=== PATIENT | male | born 1955 | race Hispanic/Latino ===

== ENCOUNTER 2018-09-12 05:23 | Inpatient (IN) | payer BC ==
[2018-09-12] MEDS ORDERED: ZOFRAN IV ONE (05:26)
[2018-09-12] MEDS ORDERED: HEPARIN 10,000 UNITS/10 ML IV ONE (05:26)
[2018-09-12] MEDS ORDERED: NACL 0.9% 1000 ML 1,000 ML IV ONE (05:26)
--- NOTE | 2018-09-12 05:32 | Emergency Department Report ---
ED Chest Pain HPI - General Chief Complaint: Chest Pain Stated Complaint: STEMI Time Seen by Provider: 09/12/18 05:26 Source: patient, EMS Mode of arrival: Stretcher Limitations: No Limitations - History of Present Illness Initial Comments: Mr. Persaud is a 62 yo male without significant past medical history who presents with severe chest pressure heaviness since 11 PM. He went to bed after the pain spontaneously improved. THe pain returned. He then called 911. Received mild relief with nitroglycerin. Did received 324 mg ASA prior to arrival. MD Complaint: chest pain -: Gradual, Sudden, This morning, This evening Onset: during rest Pain Location: substernal Pain Radiation: none Severity: severe Severity scale (0 -10): 10 Quality: heaviness, pressure Consistency: constant Improves With: nitroglycerin Worsens With: nothing re: dyspnea Heart Score - HEART Score History: Highly suspicious EKG: Significant ST-depression Age: 45-65 Risk factors: 1-2 risk factors Troponin: 1-3x normal limit HEART Score: 7 ED Review of Systems ROS: Stated complaint: STEMI Other details as noted in HPI Comment: All other systems reviewed and negative Constitutional: malaise Respiratory: shortness of breath Cardiovascular: chest pain ED Past Medical Hx - Past Medical History Previous Medical History?: No - Surgical History Past Surgical History?: Yes Additional Surgical History: Right kidney at age 10. - Family History Family history: CAD/[place] (father) - Social History Smoking Status: Never Smoker Substance Use Type: None ED Physical Exam - General Limitations: No Limitations General appearance: alert, in distress (eyes closed in pain, gives hx, grayish pale skin discoloration) - Head Head exam: Present: atraumatic, normocephalic - Eye Eye exam: Present: normal appearance. Absent: scleral icterus, conjunctival injection - ENT ENT exam: Present: mucous membranes moist - Neck Neck exam: Present: normal inspection, full ROM - Respiratory Respiratory exam: Present: normal lung sounds bilaterally. Absent: respiratory distress, wheezes, rales, rhonchi - Cardiovascular Cardiovascular Exam: Present: regular rate, normal rhythm, normal heart sounds, other (equal radial 2+ pulses). Absent: systolic murmur, diastolic murmur, rubs, gallop - GI/Abdominal GI/Abdominal exam: Present: soft, normal bowel sounds. Absent: distended, tenderness, guarding, rebound - Rectal Rectal exam: Present: deferred - Extremities Exam Extremities exam: Present: normal inspection - Back Exam Back exam: Present: normal inspection - Neurological Exam Neurological exam: Present: alert, oriented X3 - Psychiatric Psychiatric exam: Present: normal affect, normal mood - Skin Skin exam: Present: warm, dry, intact, normal color. Absent: rash ED Medical Decision Making - EKG Data 09/12/18 05:35 EKG obtained 0525 Normal sinus rhythm rate 90 beats a minute axis normal intervals +ST elevation in the inferior leads 3 and aVF with reciprocal depression most notable in V2 and ST depression in lateral leads - Medical Decision Making Prior to Mr. Persaud arrival I reviewed EKG transmission, concern for inferior ST elevation [place]. I discussed case with Dr. Constantino who reviewed EKG. He also agreed with clinical impression. inferior ST elevation. CODE STEMI Code STEMI was activated prior to arrival patient. Upon arrival, I reviewed second cardiac dressing which showed revolving inferior acute NJ. EKG obtained here in the ED also had findings of inferior ST elevation NJ. He received aspirin nitroglycerin per EMS. He received heparin bolus with heparin infusion. He also received nitroglycerin infusion here in ED. Transfer to the Picture Copyist in faire condition. Critical care attestation.: If time is entered above; I have spent that time in minutes in the direct care of this critically ill patient, excluding procedure time. ED Disposition Clinical Impression: ST elevation myocardial infarction (STEMI) of inferior wall, initial episode of care Disposition: OP ADMIT IP TO THIS HOSP Is pt being admited?: Yes Does the pt Need Aspirin: No Condition: Stable
[2018-09-12] MEDS ORDERED: TRIDIL DRIP 50MG/250ML 50 MG/250 ML BOTTLE ONE (05:34)
[2018-09-12] MEDS: HEPARIN/ 0.45% NACL-25,000 UNIT/500 ML 25,000 UNIT/500 ML BAG IV SCH ×2 (05:40→07:17)
[2018-09-12 05:46] LABS: Basophils # (Auto) 0.1 K/mm3 (0.0-0.1); Eosinophils # (Auto) 0.2 K/mm3 (0.0-0.4); Eosinophils % (Auto) 3.5 % (0.0-4.3); Lymphocytes # (Auto) 2.9 K/mm3 (1.2-5.4); Lymphocytes % (Auto) 49.6 % (13.4-35.0); Mean Corpuscular HGB Conc 36 % (32-34); Mean Corpuscular Volume 90 fl (84-94); Monocytes # (Auto) 0.6 K/mm3 (0.0-0.8); Monocytes % (Auto) 9.5 % (0.0-7.3); Platelet Count 190 K/mm3 (140-440); Red Blood Count 5.07 M/mm3 (3.65-5.03)
[2018-09-12 05:51] LABS: Hematocrit 45.6 % (35.5-45.6); Hemoglobin 16.3 gm/dl (11.8-15.2)
[2018-09-12 05:56] LABS: INR 0.93 (0.87-1.13)
[2018-09-12 05:57] LABS: Partial Thromboplastin Time 26.3 Sec. (24.2-36.6)
[2018-09-12] MEDS ORDERED: HEPARIN/NS 5000 UNIT/500ML(CATH LAB) 1,000 ML IR ONE (05:59)
[2018-09-12] MEDS ORDERED: CALAN ONE (05:59)
[2018-09-12] MEDS ORDERED: XYLOCAINE 2% INFILTRATI ONE (06:00)
[2018-09-12] MEDS ORDERED: NITROGLYCERIN SYRINGE 0 ML ONE (06:00)
[2018-09-12] MEDS ORDERED: TRIDIL DRIP 50MG/250ML 50 MG/250 ML BOTTLE IV SCH (06:00)
[2018-09-12] MEDS: SUBLIMAZE ONE ×2 (06:02→06:10)
[2018-09-12] MEDS ORDERED: NACL 0.9% 1000 ML 1,000 ML ONE (06:03)
[2018-09-12] MEDS: VERSED ONE ×2 (06:07→06:10)
[2018-09-12 06:11] LABS: Creatine Kinase MB 3.2 ng/mL (0.0-4.0)
[2018-09-12 06:12] LABS: Albumin 4.1 g/dL (3.9-5); BUN/Creatinine Ratio 10; Blood Urea Nitrogen 10 mg/dL (9-20); Calcium 9.2 mg/dL (8.4-10.2); Hemolysis Index 120
--- NOTE | 2018-09-12 06:13 | XRay Report ---
PROCEDURE: XR CHEST 1V AP TECHNIQUE: Chest radiograph single view. HISTORY: chest pain COMPARISONS: None . FINDINGS: Heart: Normal. Mediastinum/Vessels: Normal. Lungs/Pleural space: Normal. Bony thorax: No acute osseous abnormality. Life support devices: None. IMPRESSION: No acute cardiopulmonary abnormality. This document is electronically signed by Roberto Crook MD., Sep 12 2018 06:11:40 AM ET
[2018-09-12] MEDS: HEPARIN 10,000 UNITS/10 ML ONE ×2 (06:14→06:19)
[2018-09-12] MEDS ORDERED: ZOFRAN ONE (06:14)
[2018-09-12 06:16] LABS: Alanine Aminotransferase 25 units/L (7-56)
[2018-09-12] MEDS ORDERED: DILAUDID ONE (06:31)
[2018-09-12] MEDS ORDERED: HEPARIN/NS 5000 UNIT/500ML(CATH LAB) 500 ML IR ONE (06:33)
[2018-09-12] MEDS ORDERED: PLAVIX ONE (06:59)
[2018-09-12] MEDS ORDERED: ALUM-MAG HYDROX-SIMETH 200-200-20MG/5ML ONE (06:59)
[2018-09-12] MEDS ORDERED: TYLENOL PO PRN (07:12)
[2018-09-12] MEDS ORDERED: ULTRAM PO PRN (07:12)
[2018-09-12] MEDS ORDERED: DILAUDID IV PRN (07:12)
[2018-09-12] MEDS ORDERED: ZOFRAN IV PRN (07:12)
[2018-09-12] MEDS ORDERED: SENOKOT PO PRN (07:12)
[2018-09-12] MEDS ORDERED: AMBIEN PO PRN (07:12)
--- NOTE | 2018-09-12 08:08 | Consultation ---
CARDIOLOGY CONSULTATION HISTORY OF PRESENT ILLNESS: The patient is a 62-year-old white gentleman, who was having chest pain of 4-5 hours duration on the night of admission. The pain is not getting any better and getting worse, hence paramedics were called and EKG showed sinus rhythm with mild ST elevations in the inferior leads along with reciprocal ST depressions across the precordial leads suggestive of acute inferior injury. Hence, the patient was brought to the Emergency Room and a STEMI protocol was followed and the patient was taken to the catheterization laboratory on an emergency basis. PAST MEDICAL HISTORY: Essentially unremarkable, on no medication. No history of hypertension or diabetes or pulmonary problems. SOCIAL HISTORY: Does not smoke. Drinks beer little and no history of drug use. Lives by himself. MEDICATIONS AT HOME: None. ALLERGIES: None. REVIEW OF SYSTEMS: The patient says he was getting short of breath for the last few days when he was mowing the lawn. Otherwise, no chest pains prior to this, no previous cardiac history. No history of hypertension or diabetes or pulmonary problems. No history of strokes or seizures. No history of asthma or emphysema. No significant surgical history. No leg pains or swelling. No orthopnea or PND. No unusual headaches. No hematuria. No change in the bowel habits and no urinary symptoms. No history of any GI bleed. PHYSICAL EXAMINATION: GENERAL: The patient is complaining of chest pain at the time of presentation to the catheterization laboratory in addition to back pain. Blood pressure is 140/90. Telemetry is showing sinus rhythm. HEENT: Unremarkable. Conjunctivae pink. Sclerae anicteric. NECK: Supple, no JVD. HEART: Regular, probably S4, no S3, no significant murmurs. LUNGS: Clear. ABDOMEN: Soft, nontender. EXTREMITIES: Without edema. NEUROLOGIC: Alert, oriented x 3. FINAL IMPRESSION: Chest pain of few to many hours duration with EKG changes suggestive of acute inferior injury, STEMI protocol was followed and taken to the cardiac catheterization laboratory on an emergency basis, which showed occluded proximal RCA, which was then intervened and drug eluting stent was inserted with improvement in his symptoms and EKG changes. The patient does have significant left coronary system. This will be further assessed and consideration for intervention versus bypass will be considered. The patient is hemodynamically stable at the end of the procedure without any chest pain. Rhythm is being stable. The patient is admitted to ICU. Findings were explained to the patient and his brother. They understand. I explained the importance of medical therapy and staying in the hospital. JOB# [id number] ISAURA/GERALDINE BARAJAS
--- NOTE | 2018-09-12 08:19 | Cardiac Catherization Report ---
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 No previous medical history and the patient does not follow with any doctor. DESCRIPTION OF PROCEDURE: The patient was taken to the catheterization laboratory on an emergency basis. The patient was prepared in standard fashion. The patient was sedated with IV Versed and fentanyl with complaints of chest pain and back pain. The right wrist area and forearm thoroughly cleansed with chlorhexidine solution, sterile drapes were applied. Local anesthesia was given. Right radial artery puncture was made using 21-gauge arterial puncture needle. Subsequently, 5-Nigerian slender sheath was introduced. The patient received 4000 units of heparin in the Emergency Room and received 3000 units of heparin during his radial access. The patient was given extra dose of 3000 units of heparin. Subsequently, the right coronary guiding catheter 6-Nigerian was advanced and engaged the right coronary artery, which showed occlusion of the proximal RCA. A 0.014-inch [place] XT guidewire was introduced and advanced into the distal RCA without much difficulty. This opened the vessel. There was significant stenosis. Lesion was dilated with a 2.5 x 15 mm balloon to 14 atmospheres. This JC 0 flow was converted to JC 3 flow. Subsequently, intravascular ultrasound was set up and performed of the RCA. This showed diffuse, extensive disease throughout the proximal, mid, and distal RCA. The vessel size was found to be approximately 3 mm in diameter. Also, evidence of some thrombus noted. Subsequently, 2.75 x 30 mm R-[place] drug-eluting stent was placed under fluoroscopy and angiography and expanded to 16 atmospheres with very good result. A repeat IVUS was attempted even with a flynn wire and difficult to cross the stent. Because of difficulty, no second pass of the IVUS was performed. Once JC 3 flow was obtained, the patient has reperfusion arrhythmia namely frequent ventricular bigeminy, otherwise hemodynamically stable. Chest pain improved and EKG improved. After completion of intervention of the RCA, right coronary guiding catheter was taken out and a 5-[place]igerian multipurpose catheter was used to obtain the angiograms of the left coronary artery and also left ventriculogram was performed in ANDRE and SINHALA projection using hand injection. At the end of the procedure, catheter and sheath were removed and good hemostasis was achieved with radial band. ACT was found to be 247 at the end of the procedure. The patient received 600 mg of Plavix at the end of the procedure in the catheterization laboratory. Following findings were noted. Patient was evaluated for moderate sedation,was given Versed,Fentanyl and dilaudid,was monitored continuously with pulse oximetry,EKG and hemodynamic monitoring,patient tolerated sedation well.At end of procedure,patient is alert,oriented x 3,breathing normally and moving all extremeties.Sedation started at 06:08 AM and ended at 06:51 AM. HEMODYNAMICS: 1. Opening aortic pressure 120/78, left ventricular pressure 120/32. No gradient across the aortic valve. Estimated ejection fraction 45% to 50%. 2. Left ventriculogram done in ANDRE projection showed [id number] hypokinesis of the inferior wall. Rest of the ventricle moving well. However, this is only hand injection. An echocardiogram will be obtained for further evaluation. 3. Right coronary artery, as mentioned above, is occluded in the proximal part. After passing the guidewire as mentioned above, significant lesion was noted, which was confirmed by intravascular ultrasound and 2.75 x 30 mm ROnyx stent was inserted, inflated to 16 atmospheres with good result. At the end of the coronary intervention, mild proximal disease was noted proximal to the stent and distally, there is no significant disease noted in the RCA angiographically. However, it is to be noted that by intravascular ultrasound, the patient has diffuse moderate disease. Left coronary system shows calcifications in the LAD, left main area. Distal LM shows 30% to 40% smooth lesion. LAD, which curves around the apex, is a small caliber vessel. It shows significant 70% to 80% proximal lesion at the origin of small-sized proximal diagonal branch. Ostium of this diagonal branch has severe lesion. JC 3 flow was noted in the LAD. Ramus branch, which is a medium sized vessel, has long 90% segmental disease starting at the ostium and the proximal part. Distally without any significant disease, medium-sized vessel. Circumflex artery shows smooth 40% proximal long segmental lesion along with severe 80% to 90% distal disease before the origin of a medium-sized distal obtuse marginal branch. Collaterals none. FINAL IMPRESSION: 1. [id number] hypokinesis of the inferior wall. Ejection fraction 45% to 50%. 2. Occluded RCA, which is the culprit lesion for acute inferior wall ST-elevation myocardial infarction with successful intervention by placement of a drug-eluting stent. JC flow was 0 prior to the procedure and JC flow was 3 at the end of the procedure. No complications were noted of dissection or perforation or embolization. Left coronary artery shows moderate distal left main disease, significant proximal LAD disease at the ostium of the small-sized diagonal branch. LAD itself is a small caliber vessel. Similarly medium-sized ramus branch has severe ostial lesion and also moderate proximal circumflex lesion in addition to severe distal disease in the circumflex noted. Considering the above anatomy, further revascularization of the left coronary system will be considered, surgical opinion will be obtained. However, JC 3 flow was noted in all the vessels in the left coronary system. Considering the patient is hemodynamically stable, pain-free, the patient will be continued on aggressive medication and a surgical opinion will be obtained regarding the revascularization of the left coronary artery. The patient was started on aspirin in addition to Plavix. The patient received 600 mg of Plavix in the catheterization laboratory. The patient was transferred to the room in stable condition. [facility]# [id number] ISAURA/GERALDINE BARAJAS
[2018-09-12] MEDS: ECOTRIN PO SCH (09:43)
[2018-09-12] MEDS: ZESTRIL PO SCH (09:43)
[2018-09-12] MEDS: LOPRESSOR PO SCH ×2 (09:44→22:00)
[2018-09-12] MEDS: NACL 0.9% 1000 ML 1,000 ML IV SCH ×2 (09:44→22:57)
[2018-09-12 10:28] LABS: Creatine Kinase MB 174.8 ng/mL (0.0-4.0)
[2018-09-12 11:02] LABS: Chol/HDL Ratio 4.61 %
[2018-09-12 11:56] LABS: Creatine Kinase MB 207.3 ng/mL (0.0-4.0)
--- NOTE | 2018-09-12 17:03 | Consultation ---
History of Present Illness Consult date: 09/12/18 Requesting physician: MICKEY QUILES Reason for consult: other (STEMI) History of present illness: PULMONARY/CCM CONSULT NOTE (Full dictation # [id number]) Please see dictated notes for full details Medications and Allergies Allergies Allergy/AdvReac Type Severity Reaction Status Date / Time No Known Allergies Allergy Unverified 09/12/18 05:40 Active Meds: Active Medications Acetaminophen (Tylenol) 650 mg PO Q4H PRN PRN Reason: Pain MILD(1-3)/Fever >100.5/DOMINGUEZ Aspirin (Ecotrin) 325 mg PO QDAY GERALD Last Admin: 09/12/18 09:43 Dose: 325 mg Documented by: Atorvastatin Calcium (Lipitor) 80 mg PO QHS GERALD Clopidogrel Bisulfate (Plavix) 75 mg PO QDAY GERALD Hydromorphone HCl (Dilaudid) 0.5 mg IV Q3H PRN PRN Reason: Pain , Severe (7-10) Sodium Chloride (Nacl 0.9% 1000 Ml) 1,000 mls @ 42 mls/hr IV ONCE ONE Stop: 09/13/18 05:14 Last Admin: 09/12/18 06:10 Dose: 100 mls Documented by: Nitroglycerin/Dextrose (Tridil Drip 50mg/250ml) 50 mg in 250 mls @ 3 mls/hr IV TITR GERALD; Protocol Last Titration: 09/12/18 05:46 Dose: 20 mcg/min, 6 mls/hr Documented by: Heparin Sodium/Sodium Chloride (Heparin/ 0.45% Nacl-25,000 Unit/500 Ml) 25,000 unit in 500 mls @ 20 mls/hr IV TITRATE GERALD; Protocol Last Titration: 09/12/18 15:40 Dose: 0 units/hr, 0 mls/hr Documented by: Sodium Chloride (Nacl 0.9% 1000 Ml) 1,000 mls @ 100 mls/hr IV DIRECT GERALD Last Admin: 09/12/18 09:44 Dose: 100 mls/hr Documented by: Lisinopril (Zestril) 2.5 mg PO QDAY GERALD Last Admin: 09/12/18 09:43 Dose: 2.5 mg Documented by: Metoprolol Tartrate (Lopressor) 50 mg PO BID GERALD Last Admin: 09/12/18 09:44 Dose: 50 mg Documented by: Ondansetron HCl (Zofran) 4 mg IV Q8H PRN PRN Reason: N/V unrelieved by Reglan Last Admin: 09/12/18 15:49 Dose: 4 mg Documented by: Anthony (Senokot) 8.6 mg PO Q12H PRN PRN Reason: Laxative Effect Tramadol HCl (Ultram) 50 mg PO Q4H PRN PRN Reason: Pain, Mild (1-3) Last Admin: 09/12/18 15:47 Dose: 50 mg Documented by: Zolpidem Tartrate (Ambien) 5 mg PO QHS PRN PRN Reason: Sleep Physical Examination Vital signs: Vital Signs Pulse Ox 80 L 09/12/18 05:16 Results - Laboratory Findings CBC and BMP: 09/12/18 05:34 09/12/18 05:34 PT/INR, D-dimer PT 13.0 Sec. (12.2-14.9) 09/12/18 05:34 INR 0.93 (0.87-1.13) 09/12/18 05:34 Abnormal lab findings: Abnormal Labs 09/12/18 09/12/18 09/12/18 05:34 05:34 09:40 RBC 5.07 H Hgb 16.3 H MCHC 36 H Lymph % (Auto) 49.6 H [place] % (Auto) 9.5 H Seg Neutrophils % 36.4 L Heparin Anti-Xa Level Carbon Dioxide 21 L Glucose 141 H Total Creatine Kinase 1454 H CK-MB (CK-2) 174.8 H CK-MB (CK-2) Rel Index 4.6 H 12.0 H Troponin T 3.240 H* D LDL Cholesterol Direct 133 H HDL Cholesterol 36 L 09/12/18 09/12/18 11:05 13:18 RBC Hgb MCHC Lymph % (Auto) [place] % (Auto) Seg Neutrophils % Heparin Anti-Xa Level 1.35 H Carbon Dioxide Glucose Total Creatine Kinase 1660 H CK-MB (CK-2) 207.3 H CK-MB (CK-2) Rel Index 12.4 H Troponin T 2.200 H* D LDL Cholesterol Direct HDL Cholesterol
[2018-09-12] MEDS: PEPCID PO SCH (20:18)
--- NOTE | 2018-09-12 23:29 | History and Physical Report ---
History of Present Illness Date of admission: 09/12/18 06:48 Chief complaint: Chest pain History of present illness: 62-year-old man with significant past medical history who presented to the hospital with acute severe 10 out of 10 chest pain. He was seen in the ER, he was treated with aspirin and nitroglycerin with no improvements. He was found to have STEMI and taken to the labeling machine operator. The patient was complaining of shortness of breath associated with chest pain., Pain 10 out of 10, substernal, nonradiating. Past medical history; denies any significant past medical problems Surgical history, right kidney surgery H 10 Family history CAD and [place] in his father Social history he denies smoking alcohol or illicit drug use Medications and Allergies Allergies Allergy/AdvReac Type Severity Reaction Status Date / Time No Known Allergies Allergy Unverified 09/12/18 05:40 Active Meds: Active Medications Acetaminophen (Tylenol) 650 mg PO Q4H PRN PRN Reason: Pain MILD(1-3)/Fever >100.5/DOMINGUEZ Aspirin (Ecotrin) 325 mg PO QDAY [facility] Last Admin: 09/12/18 09:43 Dose: 325 mg Documented by: Atorvastatin Calcium (Lipitor) 80 mg PO QHS [facility] Last Admin: 09/12/18 22:00 Dose: 80 mg Documented by: Clopidogrel Bisulfate (Plavix) 75 mg PO QDAY [facility] Famotidine (Pepcid) 20 mg PO QDAY [facility] Last Admin: 09/12/18 20:18 Dose: 20 mg Documented by: Hydromorphone HCl (Dilaudid) 0.5 mg IV Q3H PRN PRN Reason: Pain , Severe (7-10) Sodium Chloride (Nacl 0.9% 1000 Ml) 1,000 mls @ 42 mls/hr IV ONCE ONE Stop: 09/13/18 05:14 Last Admin: 09/12/18 06:10 Dose: 100 mls Documented by: Nitroglycerin/Dextrose (Tridil Drip 50mg/250ml) 50 mg in 250 mls @ 3 mls/hr IV TITR GERALD; Protocol Last Titration: 09/12/18 16:00 Dose: 0 mcg/min, 0 mls/hr Documented by: Heparin Sodium/Sodium Chloride (Heparin/ 0.45% Nacl-25,000 Unit/500 Ml) 25,000 unit in 500 mls @ 20 mls/hr IV TITRATE GERALD; Protocol Last Titration: 09/12/18 21:51 Dose: 800 units/hr, 16 mls/hr Documented by: Sodium Chloride (Nacl 0.9% 1000 Ml) 1,000 mls @ 100 mls/hr IV DIRECT GERALD Last Admin: 09/12/18 22:57 Dose: 100 mls/hr Documented by: Lisinopril (Zestril) 2.5 mg PO QDAY [facility] Last Admin: 09/12/18 09:43 Dose: 2.5 mg Documented by: Metoprolol Tartrate (Lopressor) 50 mg PO BID [facility] Last Admin: 09/12/18 22:00 Dose: 50 mg Documented by: Ondansetron HCl (Zofran) 4 mg IV Q8H PRN PRN Reason: N/V unrelieved by Manjinder Last Admin: 09/12/18 15:49 Dose: 4 mg Documented by: Senna (Senokot) 8.6 mg PO Q12H PRN PRN Reason: Laxative Effect Tramadol HCl (Ultram) 50 mg PO Q4H PRN PRN Reason: Pain, Mild (1-3) Last Admin: 09/12/18 15:47 Dose: 50 mg Documented by: Zolpidem Tartrate (Ambien) 5 mg PO QHS PRN PRN Reason: Sleep Review of Systems All systems: negative Constitutional: no weight loss Ears, nose, mouth and throat: no ear pain Cardiovascular: chest pain, no orthopnea Respiratory: no cough Gastrointestinal: no abdominal pain Genitourinary Male: no dysuria Musculoskeletal: no neck stiffness Integumentary: no rash Neurological: no head injury Psychiatric: no anxiety Endocrine: no cold intolerance Hematologic/Lymphatic: no easy bruising Allergic/Immunologic: no urticaria Exam - Constitutional Vitals: Temp Pulse Resp BP Pulse Ox 97.7 F 66 19 99/67 96 09/12/18 20:00 09/12/18 23:11 09/12/18 23:11 09/12/18 23:11 09/12/18 23:11 General appearance: Present: no acute distress, well-nourished - EENT Eyes: Present: PERRL ENT: hearing intact, clear oral mucosa - Neck Neck: Present: supple, normal ROM - Respiratory Respiratory effort: normal Respiratory: bilateral: CTA - Cardiovascular Heart Sounds: Present: S1 & S2. Absent: rub, click - Extremities Extremities: pulses symmetrical, No edema Peripheral Pulses: within normal limits - Abdominal General gastrointestinal: Present: soft, non-tender, non-distended, normal bowel sounds Male genitourinary: Present: normal - Integumentary Integumentary: Present: clear, warm, dry - Musculoskeletal Musculoskeletal: gait normal, strength equal bilaterally - Psychiatric Psychiatric: appropriate mood/affect, intact judgment & insight - Neurologic Neurologic: CNII-XII intact, moves all extremities Results - Labs CBC & Chem 7: 09/13/18 04:47 09/13/18 04:47 Labs: Laboratory Last Values WBC 5.9 K/mm3 (4.5-11.0) 09/12/18 05:34 RBC 5.07 M/mm3 (3.65-5.03) H 09/12/18 05:34 Hgb 16.3 gm/dl (11.8-15.2) H 09/12/18 05:34 Hct 45.6 % (35.5-45.6) 09/12/18 05:34 MCV 90 fl (84-94) 09/12/18 05:34 MCH 32 pg (28-32) 09/12/18 05:34 MCHC 36 % (32-34) H 09/12/18 05:34 RDW 14.0 % (13.2-15.2) 09/12/18 05:34 Plt Count 190 K/mm3 (140-440) 09/12/18 05:34 Lymph % (Auto) 49.6 % (13.4-35.0) H 09/12/18 05:34 Delta % (Auto) 9.5 % (0.0-7.3) H 09/12/18 05:34 Eos % (Auto) 3.5 % (0.0-4.3) 09/12/18 05:34 Baso % (Auto) 1.0 % (0.0-1.8) 09/12/18 05:34 Lymph # 2.9 K/mm3 (1.2-5.4) 09/12/18 05:34 Delta # 0.6 K/mm3 (0.0-0.8) 09/12/18 05:34 Eos # 0.2 K/mm3 (0.0-0.4) 09/12/18 05:34 Baso # 0.1 K/mm3 (0.0-0.1) 09/12/18 05:34 Seg Neutrophils % 36.4 % (40.0-70.0) L 09/12/18 05:34 Seg Neutrophils # 2.2 K/mm3 (1.8-7.7) 09/12/18 05:34 PT 13.0 Sec. (12.2-14.9) 09/12/18 05:34 INR 0.93 (0.87-1.13) 09/12/18 05:34 APTT 26.3 Sec. (24.2-36.6) 09/12/18 05:34 Heparin Anti-Xa Level 0.27 U.I./ml (0.3-0.7) L 09/12/18 20:54 Sodium 139 mmol/L (137-145) 09/12/18 05:34 Potassium 4.2 mmol/L (3.6-5.0) 09/12/18 05:34 Chloride 101.2 mmol/L (98-107) 09/12/18 05:34 Carbon Dioxide 21 mmol/L (22-30) L 09/12/18 05:34 21 mmol/L 09/12/18 05:34 BUN 10 mg/dL (9-20) 09/12/18 05:34 1.0 mg/dL (0.8-1.5) 09/12/18 05:34 Estimated GFR > 60 ml/min 09/12/18 05:34 10 % 09/12/18 05:34 Glucose 141 mg/dL (75-100) H 09/12/18 05:34 Calcium 9.2 mg/dL (8.4-10.2) 09/12/18 05:34 0.60 mg/dL (0.1-1.2) 09/12/18 05:34 AST 29 units/L (5-40) 09/12/18 05:34 ALT 25 units/L (7-56) 09/12/18 05:34 69 units/L (35-129) 09/12/18 05:34 1660 units/L (55-170) H 09/12/18 11:05 CK-MB (CK-2) 207.3 ng/mL (0.0-4.0) H 09/12/18 11:05 CK-MB (CK-2) Rel Index 12.4 (0-4) H 09/12/18 11:05 2.200 ng/mL (0.00-0.029) H* D 09/12/18 11:05 7.1 g/dL (6.3-8.2) 09/12/18 05:34 4.1 g/dL (3.9-5) 09/12/18 05:34 1.4 % 09/12/18 05:34 Triglycerides 75 mg/dL (2-149) 09/12/18 09:40 Cholesterol 166 mg/dL (50-199) 09/12/18 09:40 133 mg/dL (50-130) H 09/12/18 09:40 36 mg/dL (40-59) L 09/12/18 09:40 4.61 % 09/12/18 09:40 Blood Type O POSITIVE 09/12/18 05:34 Antibody Screen Negative 09/12/18 05:34 - Imaging and Cardiology Chest x-ray: image reviewed ( No acute cardiopulmonary abnormality. ) Assessment and Plan Assessment and plan: 62m who pw stemi sp cath and intervention to RCA cont med mgt, cont hep ggt and ntg ggt cont ICU care cct 33 minutes
--- NOTE | 2018-09-13 01:33 | Consultation ---
CONSULTING PHYSICIAN: Dr. Alivia Gentile. REASON FOR CONSULTATION: Critical care ST elevation myocardial infarction. CHIEF COMPLAINT AND HISTORY OF PRESENT ILLNESS: The patient is a 62-year-old male with past medical history really unremarkable. Denies history of heart disease. Denies history of hypertension. Denies any history of tobacco use or abuse. Denies any history of asthma and COPD. He states that really he was having chest pain over a couple of days. He was mowing his lawn at home and was not able to get the job done on the first day due to exertional dyspnea and chest pain, so he stopped. On the second day, he was able to do even less than he did the prior day and he went to sleep at night wondering if there was something going on. He woke up early that morning with the crushing chest pain and shortness of breath. According to him, he knew he had to get to the Emergency Room. I believe emergency medical services were called and he was brought into the Emergency Room. In the Emergency Room, he was evaluated, found to have essentially ST depressions across the precordial lead that will reciprocal to mild ST elevations in the inferior leads. He was taken to the dye lab technician and was found to have a right coronary artery, occluded proximal right RCA. PTCA was done, drug-eluting stent was placed. Postop, he was brought into the intensive care unit where I stopped by to see him. When I stopped by to see him, he was resting peacefully in bed. Chest pain was gone. He was feeling much better. He was on a heparin drip. Again, denies history of tobacco use, now or in the past. Denies any illicit drug use or abuse. This really is as much of the history of presentation as I have. PAST MEDICAL HISTORY: He is obese, otherwise no past medical history. PAST SURGICAL HISTORY: Denies. MEDICATIONS: He was on at the time I stopped by to see him were reviewed, pertinent medications include the following: Tylenol 650 mg p.o. q. 4 hours p.r.n. mild pain, aspirin 325 mg p.o. daily, Lipitor 80 mg p.o. at bedtime, Plavix 75 mg p.o. daily, heparin drip was going ACS protocol, started at 1000 units per hour, Dilaudid 0.5 mg IV q. 3 hours p.r.n. severe pain. Lisinopril 2.5 mg p.o. daily, metoprolol 50 mg p.o. b.i.d. He had been on a nitroglycerin drip at 10 mcg per minute, Zofran 4 mg IV q. 8 hours p.r.n. nausea and vomiting, tramadol 50 mg p.o. q. 4 hours p.r.n. mild pain, and Ambien 5 mg p.o. at bedtime p.r.n. insomnia. ALLERGIES: No known drug allergies. DIET: Well-built gentleman, slightly on the obese side. Denies acute weight loss or gain in the preceding few weeks to months. FAMILY AND SOCIAL HISTORY: Lives in the community. Denies alcohol, tobacco, or illicit drug use or abuse. Family history, otherwise, noncontributory. REVIEW OF SYSTEMS: No loss of consciousness. No new onset of seizures. No new onset focal weakness. No gross hematochezia or melena. No gross hematuria or dysuria. No hematemesis. No hemoptysis. He had the chest pain. Denies palpitations. Denies heat or cold intolerance. Denies polydipsia or polyuria. He admits to snoring, is not sure about witnessed apneas. Complete 13-system review of systems was obtained. Pertinent positives and/or negatives as in body of history above, otherwise, they are noncontributory. PHYSICAL EXAMINATION: VITAL SIGNS: At presentation, he was afebrile, temperature of 96.9 degrees Fahrenheit, pulse of 88, respiratory rate of 18, blood pressure was 169/101, O2 sats 100%, inspired oxygen concentration at that time was not recorded. When I stopped by to see him, O2 sats were about 98% on room air. GENERAL: He is a well-built, slightly obese male, normocephalic, atraumatic, talking to me in full sentences without overt respiratory distress. HEAD, EYES, EARS, NOSE AND THROAT: He is anicteric. No conjunctival erythema. Oropharynx is moist, is a Mallampati #3 oropharynx. No gross jugular venous distention, no thyromegaly. Grossly, no palpable lymph nodes in the supraclavicular or submandibular lymph node chains. LUNGS: Auscultation of both lung bucio unremarkable. Lungs are clear bilaterally. HEART: Heart sounds 1 and 2 are heard. They were regular in rate and rhythm at time of my evaluation without rubs or murmurs. ABDOMEN: Soft, full, bowel sounds are positive, nontender. No palpable hepatosplenomegaly. EXTREMITIES: Without overt digital clubbing, no cyanosis, no pedal edema. NEUROLOGIC: Pupils are equal, round, about 3 mm, reactive to light. Extraocular muscle movements are intact. He moves all 4 extremities spontaneously. No fasciculations. No rash. Pedal pulses are palpable and strong bilaterally. The skin is of normal turgor without overt cellulitis or rash. LABORATORY DATA: From my review are as follows: White cell count 5900, hemoglobin 16.3, hematocrit 45.6, platelet count of 193. INR within normal limits. Heparin anti-Xa level 1.35. Serum sodium 139, potassium 4.2, chloride 101, bicarbonate was 21, BUN 10, creatinine 1.0, glucose 141. Liver function test within normal limits. Troponin initial one was 0.10. His most recent is 2.20. LDL cholesterol was 133. A 3D echocardiogram was done and I am unable to pull the report. I will wait that report. A chest x-ray was also done and essentially it is a normal chest x-ray, slightly rotated to the right. No gross pneumothorax, no gross bony fractures, no acute process. ASSESSMENT AND PLAN: 1. Acute ST-elevation myocardial infarction. 2. Hypertension. 3. Chest pain, now resolved. 4. Hyperlipidemia. 5. Possible obstructive sleep apnea. PLAN: We will continue the ACS protocol. Continue the antiplatelet therapy at this point with the heparin. I will defer to Cardiology in terms of introducing other disease modifying medications. Beta blockade. I will await the 2D echo to see what his ejection fraction is and if there is any evidence of heart failure. I will start him on GI prophylaxis, especially with him on full anticoagulation. Again, he remains on full anticoagulation as well as Plavix and the aspirin. He actually is also on Lipitor. Continue tobacco abstinence has been counseled. Outpatient [facility] evaluation has been counseled. Flu and pneumonia vaccination will be addressed per protocol. Thank you very much for the consult. We will follow along. We will make further recommendations as picture progresses/becomes clearer. We will watch him in the intensive care unit overnight and hopefully, we can transfer to regular floor in the morning. JOB# [id number] MARISSA/GERALDINE BARAJAS
[2018-09-13 06:03] LABS: Basophils % (Auto) 0.8 % (0.0-1.8); Eosinophils # (Auto) 0.1 K/mm3 (0.0-0.4); Eosinophils % (Auto) 1.9 % (0.0-4.3); Hematocrit 38.2 % (35.5-45.6); Hemoglobin 13.4 gm/dl (11.8-15.2); Lymphocytes # (Auto) 1.7 K/mm3 (1.2-5.4); Lymphocytes % (Auto) 28.2 % (13.4-35.0); Mean Corpuscular HGB Conc 35 % (32-34); Mean Corpuscular Volume 90 fl (84-94); Monocytes # (Auto) 0.6 K/mm3 (0.0-0.8); Monocytes % (Auto) 10.4 % (0.0-7.3); Platelet Count 158 K/mm3 (140-440); Red Blood Count 4.24 M/mm3 (3.65-5.03)
[2018-09-13 06:17] LABS: Creatine Kinase MB 69.2 ng/mL (0.0-4.0)
[2018-09-13 06:19] LABS: BUN/Creatinine Ratio 11; Blood Urea Nitrogen 10 mg/dL (9-20); Calcium 7.7 mg/dL (8.4-10.2); Hemolysis Index 4
--- NOTE | 2018-09-13 07:59 | Progress Note ---
Assessment and Plan Assessment and plan: 62m who pw stemi sp cath and intervention to RCA cont med mgt, cont hep ggt and ntg ggt cont ICU care cct 33 minutes History Interval history: Review of systems Constitutional: No fevers, no malaise, no joint pains CVS: No chest pain, no orthopnea, no pedal edema GI: No abdominal pain, no diarrhea, no vomiting, no constipation Respiratory: No shortness of breath, no wheezing, no coughing Hospitalist Physical - Physical exam Narrative exam: General.: Appears well, no distress, nontoxic HEENT: Moist mucous membranes, extraocular muscles intact, no lymphadenopathy Neck: supple Cardiac: S1-S2 heard Lungs: clear to auscultation bilaterally Abdomen: soft , nontender, nondistended, bowel sounds positive Extremities: no edema clubbing or cyanosis Skin: no rash or lesions Neurologic: no gross focal deficits Psych: calm, and cooperative - Constitutional Vitals: Temp Pulse Resp BP Pulse Ox 98.0 F 63 20 113/67 97 09/13/18 04:00 09/13/18 07:11 09/13/18 07:11 09/13/18 07:11 09/13/18 07:11 Results - Labs CBC & Chem 7: 09/13/18 04:47 09/13/18 04:47 Labs: Laboratory Last Values WBC 6.1 K/mm3 (4.5-11.0) 09/13/18 04:47 RBC 4.24 M/mm3 (3.65-5.03) 09/13/18 04:47 Hgb 13.4 gm/dl (11.8-15.2) 09/13/18 04:47 Hct 38.2 % (35.5-45.6) D 09/13/18 04:47 MCV 90 fl (84-94) 09/13/18 04:47 MCH 32 pg (28-32) 09/13/18 04:47 MCHC 35 % (32-34) H 09/13/18 04:47 RDW 14.0 % (13.2-15.2) 09/13/18 04:47 Plt Count 158 K/mm3 (140-440) 09/13/18 04:47 Lymph % (Auto) 28.2 % (13.4-35.0) 09/13/18 04:47 [place] % (Auto) 10.4 % (0.0-7.3) H 09/13/18 04:47 Eos % (Auto) 1.9 % (0.0-4.3) 09/13/18 04:47 Baso % (Auto) 0.8 % (0.0-1.8) 09/13/18 04:47 Lymph # 1.7 K/mm3 (1.2-5.4) 09/13/18 04:47 [place] # 0.6 K/mm3 (0.0-0.8) 09/13/18 04:47 Eos # 0.1 K/mm3 (0.0-0.4) 09/13/18 04:47 Baso # 0.0 K/mm3 (0.0-0.1) 09/13/18 04:47 Seg Neutrophils % 58.7 % (40.0-70.0) 09/13/18 04:47 Seg Neutrophils # 3.6 K/mm3 (1.8-7.7) 09/13/18 04:47 PT 13.0 Sec. (12.2-14.9) 09/12/18 05:34 INR 0.93 (0.87-1.13) 09/12/18 05:34 APTT 26.3 Sec. (24.2-36.6) 09/12/18 05:34 Heparin Anti-Xa Level 0.27 U.I./ml (0.3-0.7) L 09/12/18 20:54 Sodium 138 mmol/L (137-145) 09/13/18 04:47 Potassium 4.0 mmol/L (3.6-5.0) 09/13/18 04:47 Chloride 105.7 mmol/L (98-107) 09/13/18 04:47 Carbon Dioxide 22 mmol/L (22-30) 09/13/18 04:47 14 mmol/L 09/13/18 04:47 BUN 10 mg/dL (9-20) 09/13/18 04:47 0.9 mg/dL (0.8-1.5) 09/13/18 04:47 Estimated GFR > 60 ml/min 09/13/18 04:47 11 % 09/13/18 04:47 Glucose 103 mg/dL (75-100) H 09/13/18 04:47 Calcium 7.7 mg/dL (8.4-10.2) L D 09/13/18 04:47 0.60 mg/dL (0.1-1.2) 09/12/18 05:34 AST 29 units/L (5-40) 09/12/18 05:34 ALT 25 units/L (7-56) 09/12/18 05:34 69 units/L (35-129) 09/12/18 05:34 624 units/L (55-170) H 09/13/18 04:47 CK-MB (CK-2) 69.2 ng/mL (0.0-4.0) H 09/13/18 04:47 CK-MB (CK-2) Rel Index 11.0 (0-4) H 09/13/18 04:47 2.220 ng/mL (0.00-0.029) H* 09/13/18 04:47 7.1 g/dL (6.3-8.2) 09/12/18 05:34 4.1 g/dL (3.9-5) 09/12/18 05:34 1.4 % 09/12/18 05:34 Triglycerides 75 mg/dL (2-149) 09/12/18 09:40 Cholesterol 166 mg/dL (50-199) 09/12/18 09:40 133 mg/dL (50-130) H 09/12/18 09:40 36 mg/dL (40-59) L 09/12/18 09:40 4.61 % 09/12/18 09:40 Blood Type O POSITIVE 09/12/18 05:34 Antibody Screen Negative 09/12/18 05:34 Active Medications - Current Medications Current Medications: Generic Name Dose Route Start Last Admin Trade Name Freq PRN Reason Stop Dose Admin Acetaminophen 650 mg 09/12/18 07:12 Tylenol PO Q4H PRN Pain MILD(1-3)/Fever >100.5/DOMINGUEZ Aspirin 325 mg 09/12/18 10:00 09/12/18 09:43 Ecotrin PO 325 mg QDAY GERALD Administration Atorvastatin Calcium 80 mg 09/12/18 22:00 09/12/18 22:00 Lipitor PO 80 mg QHS GERALD Administration Clopidogrel Bisulfate 75 mg 09/13/18 10:00 Plavix PO QDAY GERALD Famotidine 20 mg 09/12/18 19:00 09/12/18 20:18 Pepcid PO 20 mg QDAY GERALD Administration Hydromorphone HCl 0.5 mg 09/12/18 07:12 Dilaudid IV Q3H PRN Pain , Severe (7-10) Nitroglycerin/Dextrose 50 mg in 250 mls @ 3 mls/hr 09/12/18 06:00 09/12/18 16:00 Tridil Drip 50mg/250ml IV 0 mcg/min TITR GERALD 0 mls/hr Titration Protocol 10 MCG/MIN Heparin Sodium/Sodium Chloride 25,000 unit in 500 mls @ 20 mls/hr 09/12/18 06:00 09/12/18 21:51 Heparin/ 0.45% Nacl-25,000 Unit/500 Ml IV 800 units/hr TITRATE GERALD 16 mls/hr Titration Protocol 1,000 UNITS/HR Sodium Chloride 1,000 mls @ 100 mls/hr 09/12/18 08:00 09/12/18 22:57 Nacl 0.9% 1000 Ml IV 100 mls/hr DIRECT GERALD Administration Lisinopril 2.5 mg 09/12/18 10:00 09/12/18 09:43 Zestril PO 2.5 mg QDAY GERALD Administration Metoprolol Tartrate 50 mg 09/12/18 10:00 09/12/18 22:00 Lopressor PO 50 mg BID GERALD Administration Ondansetron HCl 4 mg 09/12/18 07:12 09/12/18 15:49 Zofran IV 4 mg Q8H PRN Administration N/V unrelieved by Manjinder Cruz 8.6 mg 09/12/18 07:12 Senokot PO Q12H PRN Laxative Effect Tramadol HCl 50 mg 09/12/18 07:12 09/12/18 15:47 Ultram PO 50 mg Q4H PRN Administration Pain, Mild (1-3) Zolpidem Tartrate 5 mg 09/12/18 07:12 Ambien PO QHS PRN Sleep
[2018-09-13] MEDS: PEPCID PO SCH (09:50)
[2018-09-13] MEDS: ZESTRIL PO SCH (09:50)
[2018-09-13] MEDS: ECOTRIN PO SCH (09:50)
[2018-09-13] MEDS: LOPRESSOR PO SCH (09:51)
[2018-09-13] MEDS ORDERED: PLAVIX PO SCH (10:00)
--- NOTE | 2018-09-13 10:45 | Progress Note ---
Assessment and Plan Currently stable cardiac status, pt with no current cardiac complaints. TTE reviewed. Cont present medical management. Pt s/p PCI of RCA and also has significant disease in left coronary system. Pt to be tx to [facility] where Dr. Abad will accept pt for possible CABG. Assessment and plan reviewed with pt and he is agreeable. The patient has been seen in conjunction with Dr. Mccollum who agrees with the assessment and plan of care. - Patient Problems (1) STEMI (ST elevation myocardial infarction) Current Visit: Yes Status: Acute (2) CAD (coronary artery disease) Current Visit: Yes Status: Chronic (3) Stented coronary artery Current Visit: Yes Status: Chronic (4) Dyslipidemia Current Visit: Yes Status: Chronic Subjective Date of service: 09/13/18 Principal diagnosis: STEMI Interval history: Pt resting comfortably in bed, no current cardiac complaints. Objective Last Vital Signs Temp 98.0 F 09/13/18 04:00 Pulse 68 09/13/18 09:51 Resp 20 09/13/18 07:11 BP 111/64 09/13/18 09:51 Pulse Ox 98 09/13/18 09:29 - Physical Examination General: No Apparent Distress HEENT: Positive: PERRL, Normocephaly, Mucus Membranes Moist Neck: Positive: neck supple, trachea midline Cardiac: Positive: Reg Rate and Rhythm, S1/S2 Lungs: Positive: clear to auscultation Neuro: Positive: Grossly Intact Abdomen: Positive: Soft. Negative: Tender Skin: Negative: Rash, Wound Musculoskeletal: No Pain Extremities: Absent: edema - Labs and Meds Cardiac Enzymes 09/12/18 09/12/18 09/13/18 Range/Units 09:40 11:05 04:47 CK-MB (CK-2) 174.8 H 207.3 H 69.2 H (0.0-4.0) ng/mL Lipids 09/12/18 Range/Units 09:40 Triglycerides 75 (2-149) mg/dL Cholesterol 166 (50-199) mg/dL HDL Cholesterol 36 L (40-59) mg/dL Cholesterol/HDL Ratio 4.61 % CBC 09/13/18 Range/Units 04:47 WBC 6.1 (4.5-11.0) K/mm3 RBC 4.24 (3.65-5.03) M/mm3 Hgb 13.4 (11.8-15.2) gm/dl Hct 38.2 D (35.5-45.6) % Plt Count 158 (140-440) K/mm3 Lymph # 1.7 (1.2-5.4) K/mm3 [place] # 0.6 (0.0-0.8) K/mm3 Eos # 0.1 (0.0-0.4) K/mm3 Baso # 0.0 (0.0-0.1) K/mm3 Comprehensive Metabolic Panel 09/13/18 Range/Units 04:47 Sodium 138 (137-145) mmol/L Potassium 4.0 (3.6-5.0) mmol/L Chloride 105.7 (98-107) mmol/L Carbon Dioxide 22 (22-30) mmol/L BUN 10 (9-20) mg/dL Creatinine 0.9 (0.8-1.5) mg/dL Glucose 103 H (75-100) mg/dL Calcium 7.7 L D (8.4-10.2) mg/dL - Imaging and Cardiology EKG: report reviewed, image reviewed Echo: report reviewed Cardiac cath: report reviewed - Telemetry EKG Rhythm: Sinus Rhythm
--- NOTE | 2018-09-13 11:42 | Progress Note ---
Assessment and Plan Acute ST-elevation myocardial infarction. Hypertension. Chest pain, now resolved. Hyperlipidemia. Possible obstructive sleep apnea. Subjective Date of service: 09/13/18 Principal diagnosis: STEMI; Hypertension; Chest pain; Hyperlipidemia; Possible KYAW Interval history: Patient is seen today for: Acute ST-elevation myocardial infarction; Hypertension; Chest pain, now resolved; Hyperlipidemia; Possible obstructive sleep apnea. Seen and examined at bedside; 24hour events reviewed; nursing and respiratory care staff consulted; no adverse overnight events reported to me; Objective Vital Signs - 12hr 09/12/18 09/12/18 09/13/18 23:41 23:51 00:00 Temperature 98.6 F Pulse Rate 57 L 54 L 54 L Pulse Rate [ 55 L From Monitor] Respiratory 19 14 17 Rate Blood Pressure 96/65 101/70 98/66 O2 Sat by Pulse 96 97 97 Oximetry 09/13/18 09/13/18 09/13/18 00:10 00:21 00:30 Temperature Pulse Rate 55 L 55 L 54 L Pulse Rate [ From Monitor] Respiratory 19 16 15 Rate Blood Pressure 96/65 97/65 93/63 O2 Sat by Pulse 96 96 98 Oximetry 09/13/18 09/13/18 09/13/18 00:40 00:51 01:00 Temperature Pulse Rate 56 L 54 L 57 L Pulse Rate [ From Monitor] Respiratory 16 16 19 Rate Blood Pressure 93/63 95/59 97/61 O2 Sat by Pulse 94 97 97 Oximetry 09/13/18 09/13/18 09/13/18 01:11 01:21 01:30 Temperature Pulse Rate 59 L 56 L 54 L Pulse Rate [ From Monitor] Respiratory 19 16 14 Rate Blood Pressure 97/61 94/61 95/60 O2 Sat by Pulse 98 98 98 Oximetry 09/13/18 09/13/18 09/13/18 01:41 01:51 02:00 Temperature Pulse Rate 54 L 56 L 55 L Pulse Rate [ 55 L From Monitor] Respiratory 15 20 18 Rate Blood Pressure 95/60 97/59 96/64 O2 Sat by Pulse 97 97 98 Oximetry 09/13/18 09/13/18 09/13/18 02:11 02:21 02:30 Temperature Pulse Rate 56 L 57 L 54 L Pulse Rate [ From Monitor] Respiratory 17 17 15 Rate Blood Pressure 96/64 98/67 94/57 O2 Sat by Pulse 97 97 98 Oximetry 09/13/18 09/13/18 09/13/18 02:41 02:51 03:00 Temperature Pulse Rate 55 L 56 L 56 L Pulse Rate [ From Monitor] Respiratory 15 15 15 Rate Blood Pressure 94/57 93/60 100/61 O2 Sat by Pulse 97 97 98 Oximetry 09/13/18 09/13/18 09/13/18 03:11 03:21 03:30 Temperature Pulse Rate 54 L 55 L 56 L Pulse Rate [ From Monitor] Respiratory 17 15 18 Rate Blood Pressure 100/61 96/66 106/65 O2 Sat by Pulse 97 96 98 Oximetry 09/13/18 09/13/18 09/13/18 03:41 03:51 04:00 Temperature 98.0 F Pulse Rate 90 79 60 Pulse Rate [ 60 From Monitor] Respiratory 15 22 18 Rate Blood Pressure 106/65 102/77 111/69 O2 Sat by Pulse 95 95 97 Oximetry 09/13/18 09/13/18 09/13/18 04:11 04:21 04:30 Temperature Pulse Rate 59 L 55 L 56 L Pulse Rate [ From Monitor] Respiratory 20 17 17 Rate Blood Pressure 111/69 112/72 104/69 O2 Sat by Pulse 97 97 97 Oximetry 09/13/18 09/13/18 09/13/18 04:41 04:51 05:00 Temperature Pulse Rate 57 L 62 66 Pulse Rate [ From Monitor] Respiratory 15 15 13 Rate Blood Pressure 112/72 92/62 101/61 O2 Sat by Pulse 97 97 98 Oximetry 09/13/18 09/13/18 09/13/18 05:11 05:21 05:30 Temperature Pulse Rate 56 L 57 L 57 L Pulse Rate [ From Monitor] Respiratory 17 13 16 Rate Blood Pressure 92/62 103/59 101/62 O2 Sat by Pulse 97 98 97 Oximetry 09/13/18 09/13/18 09/13/18 05:41 05:51 06:00 Temperature Pulse Rate 59 L 55 L 56 L Pulse Rate [ From Monitor] Respiratory 16 16 16 Rate Blood Pressure 103/59 100/60 104/65 O2 Sat by Pulse 97 98 99 Oximetry 09/13/18 09/13/18 09/13/18 06:11 06:21 06:30 Temperature Pulse Rate 60 85 60 Pulse Rate [ From Monitor] Respiratory 16 20 18 Rate Blood Pressure 100/60 113/67 119/76 O2 Sat by Pulse 99 96 98 Oximetry 09/13/18 09/13/18 09/13/18 06:41 06:51 07:00 Temperature Pulse Rate 60 59 L 68 Pulse Rate [ From Monitor] Respiratory 18 14 17 Rate Blood Pressure 119/76 110/71 110/71 O2 Sat by Pulse 96 97 98 Oximetry 09/13/18 09/13/18 09/13/18 07:01 07:11 07:21 Temperature Pulse Rate 66 63 61 Pulse Rate [ From Monitor] Respiratory 13 20 12 Rate Blood Pressure 120/76 113/67 110/71 O2 Sat by Pulse 98 97 100 Oximetry 09/13/18 09/13/18 09/13/18 07:31 07:41 07:51 Temperature Pulse Rate 79 63 60 Pulse Rate [ From Monitor] Respiratory 18 10 L 15 Rate Blood Pressure 110/71 110/71 106/69 O2 Sat by Pulse 97 98 98 Oximetry 09/13/18 09/13/18 09/13/18 08:01 08:11 08:21 Temperature Pulse Rate 62 64 59 L Pulse Rate [ From Monitor] Respiratory 9 L 10 L 15 Rate Blood Pressure 120/50 106/69 121/77 O2 Sat by Pulse 99 89 98 Oximetry 09/13/18 09/13/18 09/13/18 08:30 08:41 08:51 Temperature Pulse Rate 60 67 65 Pulse Rate [ From Monitor] Respiratory 16 18 19 Rate Blood Pressure 106/69 121/77 117/71 O2 Sat by Pulse 99 98 99 Oximetry 09/13/18 09/13/18 09/13/18 09:01 09:11 09:21 Temperature Pulse Rate 65 65 77 Pulse Rate [ From Monitor] Respiratory 20 12 10 L Rate Blood Pressure 117/71 117/71 116/69 O2 Sat by Pulse 97 98 96 Oximetry 09/13/18 09/13/18 09/13/18 09:29 09:31 09:41 Temperature Pulse Rate 80 72 Pulse Rate [ From Monitor] Respiratory 21 22 Rate Blood Pressure 131/82 131/82 O2 Sat by Pulse 98 98 96 Oximetry 09/13/18 09/13/18 09/13/18 09:50 09:51 10:00 Temperature Pulse Rate 68 67 61 Pulse Rate [ From Monitor] Respiratory 18 20 Rate Blood Pressure 111/64 111/64 121/74 O2 Sat by Pulse 97 98 Oximetry 09/13/18 09/13/18 09/13/18 10:11 10:21 10:30 Temperature Pulse Rate 65 78 64 Pulse Rate [ From Monitor] Respiratory 14 23 28 H Rate Blood Pressure 111/64 123/96 115/70 O2 Sat by Pulse 94 96 98 Oximetry 09/13/18 09/13/18 09/13/18 10:41 10:51 11:00 Temperature Pulse Rate 66 63 62 Pulse Rate [ From Monitor] Respiratory 21 20 18 Rate Blood Pressure 115/70 120/76 114/74 O2 Sat by Pulse 98 97 97 Oximetry CBC and BMP: 09/13/18 04:47 09/13/18 04:47 ABG, PT/INR, D-dimer: PT/INR, D-dimer PT 13.0 Sec. (12.2-14.9) 09/12/18 05:34 INR 0.93 (0.87-1.13) 09/12/18 05:34 Abnormal lab findings: Abnormal Labs 09/12/18 09/12/18 09/12/18 05:34 05:34 07:00 RBC 5.07 H Hgb 16.3 H MCHC 36 H Lymph % (Auto) 49.6 H [place] % (Auto) 9.5 H Seg Neutrophils % 36.4 L Activated Clotting Time 235 H Heparin Anti-Xa Level Carbon Dioxide 21 L Glucose 141 H Calcium Total Creatine Kinase CK-MB (CK-2) CK-MB (CK-2) Rel Index 4.6 H Troponin T LDL Cholesterol Direct HDL Cholesterol 09/12/18 09/12/18 09/12/18 09:40 11:05 13:18 RBC Hgb MCHC Lymph % (Auto) [place] % (Auto) Seg Neutrophils % Activated Clotting Time Heparin Anti-Xa Level 1.35 H Carbon Dioxide Glucose Calcium Total Creatine Kinase 1454 H 1660 H CK-MB (CK-2) 174.8 H 207.3 H CK-MB (CK-2) Rel Index 12.0 H 12.4 H Troponin T 3.240 H* D 2.200 H* D LDL Cholesterol Direct 133 H HDL Cholesterol 36 L 09/12/18 09/13/18 09/13/18 20:54 04:47 04:47 RBC Hgb MCHC 35 H Lymph % (Auto) [place] % (Auto) 10.4 H Seg Neutrophils % Activated Clotting Time Heparin Anti-Xa Level 0.27 L Carbon Dioxide Glucose 103 H Calcium 7.7 L D Total Creatine Kinase 624 H CK-MB (CK-2) 69.2 H CK-MB (CK-2) Rel Index 11.0 H Troponin T LDL Cholesterol Direct HDL Cholesterol 09/13/18 04:47 RBC Hgb MCHC Lymph % (Auto) [place] % (Auto) Seg Neutrophils % Activated Clotting Time Heparin Anti-Xa Level Carbon Dioxide Glucose Calcium Total Creatine Kinase CK-MB (CK-2) CK-MB (CK-2) Rel Index Troponin T 2.220 H* LDL Cholesterol Direct HDL Cholesterol
[2018-09-13 15:22] VITALS: BP 114/67
--- NOTE | 2018-09-14 03:27 | Discharge Summary ---
Providers - Providers Date of Admission: 09/12/18 06:48 Attending physician: EDWIN AYON MD 09/12/18 Consult to Cardiac Rehabilitation [CONS] Routine Reason For Exam: post pci 09/12/18 06:49 Consult to Physician [CONS] Routine Comment: Consulting Provider: ANALI EASON Physician Instructions: Reason For Exam: cc 09/13/18 09:48 Consult to Physician [CONS] Routine Comment: Consulting Provider: ALBAN HAMILTON Physician Instructions: Reason For Exam: stemi [facility] Condition: Stable Hospital course: 62m who pw stemi sp cath and intervention to RCA rw with med mgt, hep ggt and ntg ggt, optimize meds for mgt of cad cont icu care Pt s/p PCI of RCA and also has significant disease in left coronary system. Pt to be tx to [facility] where Dr. Abad will accept pt for possible CABG Disposition: DC/TX-02 [facility] IP Time spent for discharge: 33 mins Core Measure Documentation - Palliative Care Palliative Care/ Comfort Measures: Not Applicable - Core Measures Any of the following diagnoses?: acute GA - Acute GA Discharge Requirements Aspirin at discharge: Yes MARKUS/ARB for LVSD if EF <40%: Not Applicable Beta yue at discharge: Yes Statin for LDL = or >100 mg/dl on DC: Yes Exam - Constitutional Vitals: Temp Pulse Resp BP Pulse Ox 98.0 F 61 18 114/67 96 09/13/18 04:00 09/13/18 15:11 09/13/18 15:11 09/13/18 15:11 09/13/18 15:11 General appearance: Present: no acute distress, well-nourished - EENT Eyes: Present: PERRL ENT: hearing intact, clear oral mucosa - Neck Neck: Present: supple, normal ROM - Respiratory Respiratory effort: normal Respiratory: bilateral: CTA - Cardiovascular Heart Sounds: Present: S1 & S2. Absent: rub, click - Extremities Extremities: pulses symmetrical, No edema Peripheral Pulses: within normal limits - Abdominal General gastrointestinal: Present: soft, non-tender, non-distended, normal bowel sounds Male genitourinary: Present: normal - Integumentary Integumentary: Present: clear, warm, dry - Musculoskeletal Musculoskeletal: gait normal, strength equal bilaterally - Psychiatric Psychiatric: appropriate mood/affect, intact judgment & insight - Neurologic Neurologic: CNII-XII intact, moves all extremities Plan Follow up with: MISTI DUARTE MD [Primary Care Provider] - 3-5 Days
== END 2018-09-13 15:35 | disposition short-term general hospital (02) | DRG 246 ==
LOC: ED 05:23 → CC1 06:48
PROVIDERS: ADMIT Internal Medicine; ATTEND Internal Medicine
PROC: 027034Z Dilation of Coronary Artery, One Artery with Drug-eluting Intraluminal Device, Percutaneous Approach (ICD-10-PCS; principal; 2018-09-12)
PROC: 4A023N7 Measurement of Cardiac Sampling and Pressure, Left Heart, Percutaneous Approach (ICD-10-PCS; 2018-09-12)
PROC: B2111ZZ Fluoroscopy of Multiple Coronary Arteries using Low Osmolar Contrast (ICD-10-PCS; 2018-09-12)
PROC: B2151ZZ Fluoroscopy of Left Heart using Low Osmolar Contrast (ICD-10-PCS; 2018-09-12)
PROC: B240ZZ3 Ultrasonography of Single Coronary Artery, Intravascular (ICD-10-PCS; 2018-09-12)
DX: I21.19 ST elevation (STEMI) myocardial infarction involving other coronary artery of inferior wall (principal); I50.31 Acute diastolic (congestive) heart failure; I10 Essential (primary) hypertension; E78.5 Hyperlipidemia, unspecified; G47.33 Obstructive sleep apnea (adult) (pediatric); I25.10 Atherosclerotic heart disease of native coronary artery without angina pectoris; Z79.82 Long term (current) use of aspirin; Z79.899 Other long term (current) drug therapy; Z82.49 Family history of ischemic heart disease and other diseases of the circulatory system
CPT/HCPCS: 36415; 71045; 80048; 80053; 80061; 82550; 82553; 84484; 85025; 85347; 85520; 85610; 85730; 86850; 86900; 86901; 92941; 92978; 93005; 93010; 93306; 93458; 96361; 96374; 96375; G0378; A9270-GY; C1725; C1753; C1769; C1874; C1887; C1894; C9606; J1170; J1644; J2250; J2405; J3010; J7030; Q9967

== ENCOUNTER 2021-03-06 08:50 | Outpatient (CLI) | payer MEDICARE ==
[2021-03-06 09:17] LABS: Basophils % (Auto) 1.1 % (0.0-1.8); Eosinophils # (Auto) 0.1 K/mm3 (0.0-0.4); Eosinophils % (Auto) 2.8 % (0.0-4.3); Hematocrit 45.2 % (35.5-45.6); Hemoglobin 15.1 gm/dl (11.8-15.2); Lymphocytes # (Auto) 1.2 K/mm3 (1.2-5.4); Lymphocytes % (Auto) 26.5 % (13.4-35.0); Mean Corpuscular HGB Conc 33 % (32-34); Mean Corpuscular Volume 87 fl (84-94); Monocytes # (Auto) 0.5 K/mm3 (0.0-0.8); Monocytes % (Auto) 10.4 % (0.0-7.3); Platelet Count 174 K/mm3 (140-440); Red Cell Distribution Width 14.3 % (13.2-15.2)
[2021-03-06 09:51] LABS: Alanine Aminotransferase 26 units/L (7-56); Albumin 4.1 g/dL (3.9-5); BUN/Creatinine Ratio 14; Blood Urea Nitrogen 13 mg/dL (9-20); Calcium 8.5 mg/dL (8.4-10.2); Chol/HDL Ratio 4.47 %; HDL Cholesterol 38 mg/dL (40-59); Hemolysis Index 10; LDL Cholesterol,Direct 123 mg/dL (50-130)
== END 2021-03-06 08:51 | disposition home or self-care (01) ==
LOC: LAB 08:50
PROVIDERS: ATTEND Internal Medicine
DX: Z13.29 Encounter for screening for other suspected endocrine disorder (principal); Z00.00 Encounter for general adult medical examination without abnormal findings; E55.9 Vitamin D deficiency, unspecified; E78.5 Hyperlipidemia, unspecified; R53.83 Other fatigue; R73.9 Hyperglycemia, unspecified; R39.11 Hesitancy of micturition
CPT/HCPCS: 36415; 80053; 80061; 82306; 83036; 84153; 84443; 85025

== ENCOUNTER 2021-07-11 09:20 | Outpatient (CLI) | payer MEDICARE ==
[2021-07-11 11:55] LABS: Chol/HDL Ratio 3.08 %
== END 2021-07-11 09:21 | disposition home or self-care (01) ==
LOC: LAB 09:20
PROVIDERS: ATTEND Internal Medicine
DX: E11.9 Type 2 diabetes mellitus without complications (principal); E78.5 Hyperlipidemia, unspecified
CPT/HCPCS: 36415; 80061; 83036